=== PATIENT | male | born 1990 | race Caucasian/White ===

== ENCOUNTER 2022-01-19 19:36 | Emergency (ER) | payer SELFPAY ==
[2022-01-19 20:31] LABS: Urine Blood Negative (Negative); Urine Glucose Negative (Negative); Urine Protein Negative (Negative)
[2022-01-19 20:41] LABS: Absolute Lymphocytes (CBC) 1.6 K/uL (0.7-4.9); Hematocrit 41.1 % (39.6-49.0); Lymphocytes % 26.9 % (15.3-44.8); MPV 8.2 fL (7.6-11.3); RBC Red Blood Cell Count 4.53 M/uL (4.33-5.43)
[2022-01-19 20:44] LABS: Protime INR 1.12
[2022-01-19] MEDS ORDERED: Acetylcysteine 6000mg/30mL IV ONE ×3 (21:01→22:32)
[2022-01-19] MEDS ORDERED: NA CHLORIDE 0.9% 250 ML ONE ×2 (21:02→21:04)
[2022-01-19 21:09] LABS: Barbiturates NEGATIVE (NEGATIVE); Benzodiazepines NEGATIVE (NEGATIVE); Cocaine NEGATIVE (NEGATIVE); METHAMPHETAM NEGATIVE (NEGATIVE); Methadone NEGATIVE (NEGATIVE); Opiates NEGATIVE (NEGATIVE); Phencyclidine NEGATIVE (NEGATIVE); THC Cannibis NEGATIVE (NEGATIVE)
[2022-01-19 21:14] LABS: ALT/SGPT 38 U/L (12-78); AST/SGOT 19 U/L (15-37); Albumin 3.9 g/dL (3.4-5.0); Alkaline Phosphatase 77 U/L (45-117); BUN Blood Urea Nitrogen 8 mg/dL (7-18); Bicarbonate 28 mmol/L (21-32); Bilirubin Direct 0.1 mg/dL (0-0.2); Bilirubin Total 0.3 mg/dL (0.2-1.0); Glomerular Filtration Rate 106 ml/min (=/>90); Glucose Level 97 mg/dL (74-106); Potassium 3.8 mmol/L (3.5-5.1); Protein, Total 7.5 g/dL (6.4-8.2); Sodium Level 137 mmol/L (136-145)
--- NOTE | 2022-01-20 02:52 | ER ---
Nurse's Notes [facility] Name: Piero Cuevas Age: 31 yrs Sex: Male : 1990 Arrival Date: 01/19/2022 Time: 19:42 Bed 8 Private MD: Diagnosis: Presentation: 01/19 19:50 Chief complaint: Patient states: pt reports has been having cough and congestiono x 5 kl days seen by tele med today diagnosed with bronchitis. Pt has taken in the last 24 hours approx 210 cc dayquil or 7 doses with each dose he has take 2 gms of tylenol for a total of 14 gms he has also take one dose of robitussion [employer] with an additional 625mg ot acetaminophen. Denies any pain at this time. Initial Sepsis Screen: Does the patient meet any 2 criteria? HR > 90 bpm. Does the patient have a suspected source of infection? No. Patient's initial sepsis screen is negative. Risk Assessment: Do you want to hurt yourself or someone else? Patient reports no desire to harm self or others. Onset of symptoms was January 18, 2022. Care prior to arrival: None. Activity prior to arrival: None. 19:50 Method Of Arrival: Ambulatory 19:50 Acuity: LIANNE 2 kl 20:39 Note pt denies trying to harm self. kl 01/20 02:23 Note awaiting lab results pt reports will leave after infusion complete Pt educated on kl leaving against medical advice verbalized understanding. 02:49 Coronavirus screen: Vaccine status: Patient reports receiving the 2nd dose of the covid kl vaccine. 02:49 Ebola Screen: Patient negative for fever greater than or equal to 101.5 degrees kl Fahrenheit, and additional compatible Ebola Virus Disease symptoms. Triage Assessment: 01/19 20:38 General: Appears in no apparent distress. well groomed, well developed, Behavior is kl calm, cooperative, appropriate for age. Pain: Denies pain. Historical: - Allergies: 20:35 No Known Allergies; kl - Home Meds: 20:35 Zithromax Z-Leonel 250 mg Oral tab 1 tab once daily [Active]; Robitussin Long-Acting 1-7.5 kl mg/5 mL oral liqd [Active]; Daytime Cold and Cough 1,000-30 mg/30 mL oral liqd [Active]; acetaminophen 500 mg Oral cap [Active]; - PMHx: 20:35 None; kl - PSHx: 20:35 None; kl - Immunization history:: Adult Immunizations up to date, Client reports receiving the 2nd dose of the Covid vaccine, Date received: 2020. - Social history:: Smoking status: Patient denies any tobacco usage or history of. Screenin:38 Abuse screen: Denies threats or abuse. Nutritional screening: No deficits noted. kl Tuberculosis screening: No symptoms or risk factors identified. Fall Risk None identified. Assessment: 21:14 General: Appears in no apparent distress. comfortable, Behavior is calm, cooperative. kl Pain: Denies pain. Neuro: No deficits noted. Cardiovascular: No deficits noted. Respiratory: No deficits noted. GI: No deficits noted. No signs and/or symptoms were reported involving the gastrointestinal system. : No deficits noted. No signs and/or symptoms were reported regarding the genitourinary system. EENT: No deficits noted. No signs and/or symptoms were reported regarding the EENT system. Overdose: 21:12 [place] Suicide Severity Screening: "In the past month, have you wished you were kl or wished you could go to sleep and not wake up?" Patient responds "no." "In the past month, have you actually had any thoughts of killing yourself?" Patient responds "no." "In your lifetime, have you ever done anything, started to do anything, or prepared to do anything to end your life?" Patient responds "no." pt overdose is accidental reports was just trying to improve bronchitis symptoms. 01/20 02:48 [place] Suicide Severity Screening: "In the past month, have you wished you were kl or wished you could go to sleep and not wake up?" Patient responds "no.". 02:49 [place] Suicide Severity Screening: "In the past month, have you actually had any thoughts of killing yourself?" Patient responds "no.". Vital Signs: 01/19 19:50 BP 169 / 117; Pulse 91; Resp 18; Temp 98.1(O); Pulse Ox 100% on R/A; Pain 0/10; kl 20:40 Weight 87.09 kg (R); kl 21:15 BP 159 / 95; Pulse 57; Resp 18; Pulse Ox 97% on R/A; Pain 0/10; kl 21:56 BP 150 / 99; Pulse 64; Resp 15; Pulse Ox 98% on R/A; kl 23:30 BP 180 / 99; Pulse 85; Resp 15 S; Pulse Ox 96% on R/A; kl 01/20 01:48 BP 164 / 101; Pulse 68; Resp 11 S; Pulse Ox 96% on R/A; kl 02:21 BP 124 / 82; Pulse 82; Resp 16; Pulse Ox 100% on R/A; kl 02:27 BP 116 / 57; Pulse 80; Resp 18; Temp 98(O); Pulse Ox 96% ; kl ED Course: 01/19 19:42 Patient arrived in ED. tila 19:43 Fabio Cotter MD is Attending Physician. kdr 19:59 Kvng Quispe RN is Primary Nurse. as6 20:15 Inserted saline lock: 18 gauge in left antecubital area, using aseptic technique. kl 20:35 Triage completed. 01/20 02:22 Client placed on continuous cardiac and pulse oximetry monitoring. NIBP monitoring kl applied. phototypesetting equipment monitor on. Door closed. Noise minimized. Lights dimmed. Warm blanket given. 02:48 No provider procedures requiring assistance completed. IV discontinued, intact, kl bleeding controlled, No redness/swelling at site. Pressure dressing applied. 02:49 Arm band placed on right wrist. kl 02:49 Patient has correct armband on for positive identification. kl Administered Medications: 01/19 21:10 Drug: MucoMYST - Acetylcysteine 150 mg/kg Route: IV; Rate: calculated rate; Infused kl Over: 1 hrs; Site: right antecubital; 22:36 Drug: MucoMYST - Acetylcysteine 50 mg/kg Route: IV; Rate: calculated rate; Infused kl Over: 4 hrs; Site: right antecubital; 22:37 Drug: MucoMYST - Acetylcysteine 50 mg/kg Route: IV; Rate: calculated rate; Infused kl Over: 4 hrs; Site: right antecubital; Delivery: Primary tubing; Medication: 21:15 VIS not applicable for this client. kl Outcome: 01/20 02:48 AMA AMA form signed kl Condition: stable 02:51 Patient left the ED. kl Signatures: Kaitlin Jefferson RN RN kl Rittger, Kevin, MD MD kdr Alexander, Jessica ja Asherwson, Kvng, RN RN as6
--- NOTE | 2022-01-20 02:52 | EDPHYS ---
Physician Documentation [facility] Name: Piero Cuevas Age: 31 yrs Sex: Male : 1990 Arrival Date: 01/19/2022 Time: 19:42 Bed 8 Private MD: ED Physician Fabio Cotter HPI: 01/19 20:22 This 31 yrs old Male presents to ER via Unassigned with complaints of Possible Overdose.kdr 20:22 The patient presents to the emergency department with a possible overdose, He has been kdr taking repeated doses of Tylenol and other cold remedies over the past 24 to 48 hours. Based on preliminary estimates, he may have taken as much as 14 g or more in the last 24 hours. Context: Patient has been ill with upper respiratory symptoms and bronchitis for the past 3 to 4 days.. Associated signs and symptoms: The patient has no apparent associated signs or symptoms. Severity of symptoms: At their worst the symptoms were mild in the emergency department the symptoms are unchanged. The patient has not experienced similar symptoms in the past. The patient has not recently seen a physician. Historical: - Allergies: 20:35 No Known Allergies; kl - Home Meds: 20:35 Zithromax Z-Leonel 250 mg Oral tab 1 tab once daily [Active]; Robitussin Long-Acting 1-7.5 kl mg/5 mL oral liqd [Active]; Daytime Cold and Cough 1,000-30 mg/30 mL oral liqd [Active]; acetaminophen 500 mg Oral cap [Active]; - PMHx: 20:35 None; kl - PSHx: 20:35 None; kl - Immunization history:: Adult Immunizations up to date, Client reports receiving the 2nd dose of the Covid vaccine, Date received: 2020. - Social history:: Smoking status: Patient denies any tobacco usage or history of. ROS: 20:22 Constitutional: Negative for fever, chills, and weight loss, Eyes: Negative for injury, kdr pain, redness, and discharge, Neck: Negative for injury, pain, and swelling, Cardiovascular: Negative for chest pain, palpitations, and edema, Abdomen/GI: Negative for abdominal pain, nausea, vomiting, diarrhea, and constipation, Back: Negative for injury and pain, : Negative for injury, bleeding, discharge, and swelling, MS/Extremity: Negative for injury and deformity, Skin: Negative for injury, rash, and discoloration, Neuro: Negative for headache, weakness, numbness, tingling, and seizure activity. Psych: Negative for depression, anxiety, suicide ideation, homicidal ideation, and hallucinations, Allergy/Immunology: Negative for hives, rash, and allergies, Endocrine: Negative for neck swelling, polydipsia, polyuria, polyphagia, and marked weight changes, Hematologic/Lymphatic: Negative for swollen nodes, abnormal bleeding, and unusual bruising. 20:22 ENT: Positive for nasal discharge. 20:22 Respiratory: Positive for cough, with no reported sputum, shortness of breath, on exertion. Congestion. Exam: 20:22 Constitutional: This is a well developed, well nourished patient who is awake, alert, kdr and in no acute distress. Head/Face: Normocephalic, atraumatic. Eyes: Pupils equal round and reactive to light, extra-ocular motions intact. Lids and lashes normal. Conjunctiva and sclera are non-icteric and not injected. Cornea within normal limits. Periorbital areas with no swelling, redness, or edema. Neck: Trachea midline, no thyromegaly or masses palpated, and no cervical lymphadenopathy. Supple, full range of motion without nuchal rigidity, or vertebral point tenderness. No Meningismus. Chest/axilla: Normal chest wall appearance and motion. Nontender with no deformity. No lesions are appreciated. Cardiovascular: Regular rate and rhythm with a normal S1 and S2. No gallops, murmurs, or rubs. Normal PMI, no JVD. No pulse deficits. Respiratory: Lungs have equal breath sounds bilaterally, clear to auscultation and percussion. No rales, rhonchi or wheezes noted. No increased work of breathing, no retractions or nasal flaring. Abdomen/GI: Soft, non-tender, with normal bowel sounds. No distension or tympany. No guarding or rebound. No evidence of tenderness throughout. Back: No spinal tenderness. No costovertebral tenderness. Full range of motion. Skin: Warm, dry with normal turgor. Normal color with no rashes, no lesions, and no evidence of cellulitis. MS/ Extremity: Pulses equal, no cyanosis. Neurovascular intact. Full, normal range of motion. Neuro: Awake and alert, GCS 15, oriented to person, place, time, and situation. Cranial nerves II-XII grossly intact. Motor strength 5/5 in all extremities. Sensory grossly intact. Cerebellar exam normal. Normal gait. Psych: Awake, alert, with orientation to person, place and time. Behavior, mood, and affect are within normal limits. Vital Signs: 19:50 BP 169 / 117; Pulse 91; Resp 18; Temp 98.1(O); Pulse Ox 100% on R/A; Pain 0/10; kl 20:40 Weight 87.09 kg (R); kl 21:15 BP 159 / 95; Pulse 57; Resp 18; Pulse Ox 97% on R/A; Pain 0/10; kl 21:56 BP 150 / 99; Pulse 64; Resp 15; Pulse Ox 98% on R/A; kl 23:30 BP 180 / 99; Pulse 85; Resp 15 S; Pulse Ox 96% on R/A; kl 01/20 01:48 BP 164 / 101; Pulse 68; Resp 11 S; Pulse Ox 96% on R/A; kl 02:21 BP 124 / 82; Pulse 82; Resp 16; Pulse Ox 100% on R/A; kl 02:27 BP 116 / 57; Pulse 80; Resp 18; Temp 98(O); Pulse Ox 96% ; kl MDM: 01/19 20:22 Data reviewed: vital signs, nurses notes, lab test result(s), radiologic studies. kdr Counseling: I had a detailed discussion with the patient and/or guardian regarding: the historical points, exam findings, and any diagnostic results supporting the discharge/admit diagnosis, lab results, radiology results. 01/20 19:16 Patient medically screened. kdr 01/19 20:17 Order name: Acetaminophen; Complete Time: 01: kdr 01/19 20:17 Order name: Basic Metabolic Panel; Complete Time: : kdr 01/19 20:17 Order name: CBC with Diff; Complete Time: : kdr 01/19 20:17 Order name: ETOH Level; Complete Time: : kdr 01/19 20:17 Order name: Hepatic Function; Complete Time: 01:13 kdr 01/19 20:17 Order name: PT-INR; Complete Time: :35 kdr 01/19 20:17 Order name: Ptt, Activated; Complete Time: :35 kdr 01/19 20:17 Order name: Salicylate; Complete Time: 21:35 kdr 01/19 20:17 Order name: Urine Drug Screen; Complete Time: 21:35 kdr 01/19 20:31 Order name: Urine Dipstick-Ancillary; Complete Time: 21:35 EDMS 01/20 00:10 Order name: Acetaminophen kl 01/19 20:17 Order name: EKG - Nurse/Tech; Complete Time: 22:38 kdr 01/19 20:17 Order name: IV Saline Lock; Complete Time: 20:21 kdr 01/19 20:17 Order name: Labs collected and sent; Complete Time: 20:29 kdr 01/19 20:17 Order name: Suicide Screening ([place]); Complete Time: 22:37 kdr 01/19 20:17 Order name: Urine Dipstick-Ancillary (obtain specimen); Complete Time: 20: kdr Administered Medications: 01/19 21:10 Drug: MucoMYST - Acetylcysteine 150 mg/kg Route: IV; Rate: calculated rate; Infused kl Over: 1 hrs; Site: right antecubital; 22:36 Drug: MucoMYST - Acetylcysteine 50 mg/kg Route: IV; Rate: calculated rate; Infused kl Over: 4 hrs; Site: right antecubital; 22:37 Drug: MucoMYST - Acetylcysteine 50 mg/kg Route: IV; Rate: calculated rate; Infused kl Over: 4 hrs; Site: right antecubital; Delivery: Primary tubing; Disposition Summary: 01/20/22 02:51 Left Against Medical Advice Location: Home kl Condition: Stable kl Signatures: Dispatcher [employer] Kaitlin Cuadra RN RN kl Rittger, Kevin, MD MD kdr Corrections: (The following items were deleted from the chart) :18 20:28 ACETAMINOPHEN+C.LAB.BRZ ordered. EDAK EDMS
[2022-01-20 03:51] VITALS: BP 116/57; TEMP 98; O2SAT 96
== END 2022-01-20 02:51 | disposition left against medical advice (07) ==
LOC: ER 19:36
DX: R05.9 Cough, unspecified (principal); R09.82 Postnasal drip
CPT/HCPCS: 36415; 80048; 80076; 80307; 80320; 80329; 81003; 85025; 85610; 85730; J0132; J7050; J7060